=== PATIENT | male | born 1955 | race Caucasian/White ===

== ENCOUNTER 2019-04-09 19:28 | Emergency (ER) | payer OTHER ==
[~2019-04-09] VITALS: Ht 180.3 cm; Wt 106.8 kg
[~2019-04-09 19:28] MED LIST: ASPIR-LOW81 MG PO; ASPIRIN E.C. 8181 MG PO; CIPRO HC OTIC S10 ML OT; DOXYCYCLINE 10100 MG PO; GLUCOPHAGE1000 MG PO; LIPITOR 80MG80 MG PO; LORTAB 5/500 501 TAB PO; MULTI VITAMINS1 TAB PO; OMEGA-3 FISH1000 MG PO
[2019-04-09 19:34] VITALS: TEMP 98
[2019-04-09 22:28] VITALS: BP 119/75; PULSE 70
== END 2019-04-09 22:28 | disposition home or self-care (01) ==
LOC: COL.ER 19:28
DX: S90.32XA Contusion of left foot, initial encounter (principal); Z79.82 Long term (current) use of aspirin; Z79.84 Long term (current) use of oral hypoglycemic drugs; W14.XXXA Fall from tree, initial encounter; Y92.009 Unspecified place in unspecified non-institutional (private) residence as the place of occurrence of the external cause

== ENCOUNTER → 2023-10-13 | Outpatient (CLI) | payer MEDICARE, OTHER ==
[~2023-10-13] MED LIST changes: +Gadoterate 20 ML VIAL IV ONE
== END ==
LOC: COL.RAD 06:49
DX: R97.20 Elevated prostate specific antigen [PSA] (principal)
CPT/HCPCS: A9575